=== PATIENT | male | born 1965 | race Caucasian/White ===

== ENCOUNTER → 2021-04-08 | Outpatient (CLI) | payer OTHER ==
--- NOTE | 2021-04-08 09:11 | REP ---
INDICATION: ABN RESULT OF LIVER FUNCTION STUDY. COMPARISON: None TECHNIQUE: Real-time sonographic evaluation of the right upper quadrant with Doppler FINDINGS: Multiple ultrasonographic images of the liver show diffuse increased echoes throughout the hepatic parenchyma without evidence of a mass or ductal dilatation. The hepatic dimension at the midclavicular line is 21 cm. The common bile duct measures approximately 3 mm in its greatest transverse dimension. Multiple ultrasonographic images of the gallbladder show no focal or diffuse gallbladder wall thickening. There are no echogenic foci within the gallbladder lumen, which casts acoustic shadows. There is no pericholecystic edema. Images of the pancreatic region show no gross abnormality. The imaged portion of the right kidney is unremarkable. IMPRESSION: Evidence of hepatomegaly and fatty infiltration of the liver. Accredited by the [employer] in General Ultrasound. <Electronically signed by Jasvir Reynolds > 04/08/21 0930
== END ==
LOC: M RAD 07:56
PROVIDERS: ATTEND Nurse Practitioner Primary Care
DX: R93.2 Abnormal findings on diagnostic imaging of liver and biliary tract (principal); K76.0 Fatty (change of) liver, not elsewhere classified

== ENCOUNTER → 2021-09-23 | Outpatient (CLI) | payer OTHER | LOC: M RAD 09:55 | PROVIDERS: ATTEND Nurse Practitioner Adult Health | DX: K76.0 Fatty (change of) liver, not elsewhere classified (principal) ==

== ENCOUNTER → 2022-01-02 | Outpatient (CLI) | payer OTHER | LOC: M LABSMTC 09:56 | PROVIDERS: ATTEND Anesthesiology | DX: Z01.812 Encounter for preprocedural laboratory examination (principal); Z20.822 Contact with and (suspected) exposure to COVID-19 ==

== ENCOUNTER 2022-01-05 06:36 | Day surgery (SDC) | payer OTHER ==
[~2022-01-05] VITALS: Ht 170.2 cm; Wt 93.8 kg
[~2022-01-05 06:36] MED LIST: NS 1,000 ML IV ONE
[2022-01-05] MEDS ORDERED: propofoL 200 MG/20 ML VIAL As Ordered ONE ×3 (06:56→07:04)
[2022-01-05] MEDS ORDERED: LIDOCAINE 2% 100MG/5ML SDV (FOR ANES.) As Ordered ONE ×2 (06:56→06:59)
[2022-01-05 08:16] VITALS: BP 133/74
== END 2022-01-05 08:19 | disposition home or self-care (01) ==
LOC: M OPP 06:36
PROVIDERS: ATTEND Surgery
DX: Z12.11 Encounter for screening for malignant neoplasm of colon (principal); K64.1 Second degree hemorrhoids; K74.60 Unspecified cirrhosis of liver; E78.00 Pure hypercholesterolemia, unspecified; Z87.19 Personal history of other diseases of the digestive system; Z87.891 Personal history of nicotine dependence

== ENCOUNTER → 2022-03-09 | Outpatient (CLI) | payer OTHER | LOC: M RAD 08:18 | PROVIDERS: ATTEND Nurse Practitioner Adult Health | DX: K82.9 Disease of gallbladder, unspecified (principal) ==